=== PATIENT | female | born 1980 | race Caucasian/White ===

== ENCOUNTER 2016-04-29 08:46 | Inpatient (IN) | payer OTHER ==
[~2016-04-29 08:46] MED LIST: ATEN50TA PO; ETHI1TAB26 PO
[2016-04-29 09:22] LABS: Mean Corpuscular Hemoglobin 21.7 pg (27.0-35.0); Mean Corpuscular Volume 66.9 fL (81-100)
[2016-04-29] MEDS ORDERED: Magnesium Sulf 4 Gm/100 mL H2O 4 GM in IV Premix 1 EACH IV ONE (12:00)
[2016-04-29] MEDS ORDERED: Magnesium Sulf 20 Gm/500mL H2O 20 GM in IV Premix 1 EACH IV SCH (12:00)
--- NOTE | 2016-04-29 12:06 | PCM.HPOB ---
Subjective Date of Service: Apr 29, 2016 Referring Provider: Admitting Physician: Primary Care Physician: Korina Leach MD Attending Physician: Amisha Singleton MD Chief Complaint Preeclampsia with chronic Hypertension. History of Present History of Present Illness 35 yo with chronic hypertension at 33 weeks gestation presents to the [facility] from clinic where she was to do her twice weekly NST. Her blood pressure was measured in the office to be 180/110 and after 10 minutes 161 /99. She did not having some vision changes and left-sided headache this morning. She took her labetalol dose earlier than she normally does to help with these symptoms. Last night she took her blood pressure it was in the low 100s systolic and elected to not take her labetalol as when she does take it and her pressures are low she wakes up with palpitations in the morning. Her vision changes have resolved she has a mild headache. Blood pressures in triage are labile with consecutive readings of 157/100, 128/109, 133/82, 119/76 , 163/97, 154/92. 24-hour calculated urine protein on 03/05/2016 was found to be elevated at 350.9 mg per 24 hours normal range up to 150. On April 23 calculated 24-hour urine protein was measured at less than 119.6 OB History: (3), Para (2), Term (2), Pre-term (0), ( 0), Living (2) Obstetrical Complications: Pre-eclampsia Past Medical History Obstetrical History: in 2004 in 2009 No Hypertension or diabetes Gynecologic History: Abnormal Pap HPV negative, plan to repeat Pap Medical History: 1. Chronic Hypertension 2. Thalassemia 3. Pyelonephritis Hx Tobacco Use: No Hx Alcohol Use: No Hx Substance Use: No Past Family History Family History non-contributory Review of Systems Eyes: Resports: Vision Changes (vision changes) Cardiovascular: Denies: Chest Pain Respiratory: Denies: Cough Gastrointestinal: Denies: Abdominal Pain Genitourinary: Denies: Hematuria Neurological: Denies: Change in Speech Allergy Coded Allergies: No Known Allergies (Verified Allergy, Unknown, 07/31/14) Exam Vital Signs BP labile systolic range 163-119, diastolic range 71-109 Exam Category 1 tracing Constitutional: Well-developed, Well-nourished HEENT: Atraumatic Lungs: Clear to Auscultation, Normal Air Movement Heart: Regular Rate/Rhythm, No Murmurs/Rubs/Gallops Abdomen: Gravid Neuro: Grossly Neurologically Intact Labs/Diagnostics Labs WBCs 7.3 Hemoglobin 11.5 Hematocrit 85.4 Platelets 311 BUN 8 Creatinine 0.44 Uric acid 5.0 AST 15 ALT 13 Maternal Blood Type: A (positive) Hx Rho(D) Immune Globulin: No Antibody Screen: negative Group B Strep Results: Not done (less than 33 weeks) Rubella: Immune OB Intrapartum Assessment/Plan Assessment 35 yo with chronic hypertension (since 2011) is 32 weeks 6 days gestation. Presents from clinic with critically elevated blood pressures. She has had labile pressures with readings above 160 systolic after getting up to go to the bathroom. Dr. Leach spoke with Dr. Barrientos of [facility] at [place] who is accepting. She will be transferred to [facility] for and NICU services. She was started on Magnesium 4 gm loading with 2 gm/hr maintenance and given betamethasone. Problems: (1) Preeclampsia Qualifiers: Trimester: unspecified trimester Qualified Code: O14.90 - Unspecified pre- eclampsia, unspecified trimester Status: Acute ICD Code: O14.90 Pain Evaluation: Adequate Pain Control Intrapartum plan Transfer to [place] Attending Statement The patient was seen and examined together with Dr. Karis Carroll DO on 04/29/2016 and I agree with the history, exam and plan as outlined in the note above. KARIS CARROLL DO Apr 29, 2016 10:17 Korina Leach MD May 14, 2016 07:52
[2016-04-29] MEDS ORDERED: Lactated Ringer's 1,000 ML IV ONE (12:11)
--- NOTE | 2016-04-29 12:27 | PCM.DC.OB ---
Obstetrical Discharge Summary Date of Service Apr 29, 2016 Date of hospital admission Date of Discharge: Apr 29, 2016 Providers Admitting Physician: Primary Care Physician: Korina Leach MD Attending Physician: Amisha Singleton MD Diagnosis at Time of Discharge 1. Chronic hypertension 2. Preeclampsia Problems: (1) Preeclampsia Qualifiers: Trimester: unspecified trimester Qualified Code: O14.90 - Unspecified pre- eclampsia, unspecified trimester Status: Acute ICD Code: O14.90 Invasive procedures none Brief History and Physical: 35 yo with chronic hypertension at 33 weeks gestation presents to the [facility] from clinic where she was to do her twice weekly NST. Her blood pressure was measured in the office to be 180/110 and after 10 minutes 161 /99. She did not having some vision changes and left-sided headache this morning. She took her labetalol dose earlier than she normally does to help with these symptoms. Last night she took her blood pressure it was in the low 100s systolic and elected to not take her labetalol as when she does take it and her pressures are low she wakes up with palpitations in the morning. Her vision changes have resolved she has a mild headache. Blood pressures in triage are labile with consecutive readings of 157/100, 128/109, 133/82, 119/76 , 163/97, 154/92. 24-hour calculated urine protein on 03/05/2016 was found to be elevated at 350.9 mg per 24 hours normal range up to 150. On April 23 calculated 24-hour urine protein was measured at less than 119.6 Exam on day of discharge: vital signs stable and normal, well-nourished well- appearing, heart regular rate and rhythm no murmurs, lungs clear to auscultation bilaterally with good air movement. pulses symmetric and no edema in bilateral lower extremities. Appropriate mood and affect. Hospital Course: 35-year-old presents from clinic due to critically elevated blood pressures initial reading here was 157/100.She has had labile pressures with readings above 160 systolic after getting up to go to the bathroom. Lab values grossly normal with an indeterminate urine protein creatinine ratio. Dr. Leach spoke with Dr. Barrientos of [facility] at [place] who is accepting. She will be transferred to [facility] for and NICU services. She was started on Magnesium 4 gm loading with 2 gm/hr maintenance and given betamethasone. Transferred via ALS a regular and stable condition Atenolol (Atenolol) 50 Mg Tablet 50 MG PO DAILY (Reported) Ethinyl Estradiol/Drospirenone 0.02-3 mg (Beatrice 28) 1 Each Tablet 1 EACH PO DAILY (Reported) Discharge Medications: Betamethasone and magnesium infusion Disposition Transferred to [facility] maternal- medicine KRISTEL CARROLL DO Apr 29, 2016 12:27
[2016-04-30] MEDS ORDERED: Betameth Ace-Betam SodPhos 6 mg/mL 5 mL Inj IM SCH (08:30)
== END 2016-04-29 12:29 | disposition short-term general hospital (02) | DRG 781 ==
LOC: FBCO 08:46 → FBC 11:59
PROVIDERS: ADMIT Obstetrics & Gynecology; ATTEND Obstetrics & Gynecology
DX: O11.3 Pre-existing hypertension with pre-eclampsia, third trimester (principal); Z3A.33 33 weeks gestation of pregnancy; I10 Essential (primary) hypertension

== ENCOUNTER 2016-05-28 01:19 | Inpatient (IN) | payer OTHER ==
[~2016-05-28] VITALS: Ht 170.2 cm; Wt 73.5 kg
[2016-05-28] MEDS ORDERED: Methylergonovine 0.2 mg/mL Inj IM PRN ×2 (07:25→16:15)
[2016-05-28] MEDS ORDERED: Ondansetron 2 mg/mL 2 mL Inj IVPUSH PRN ×2 (07:25→10:25)
[2016-05-28] MEDS ORDERED: fentaNYL-PF 50 mCg/mL 2 mL Inj IVPUSH PRN (07:25)
[2016-05-28] MEDS ORDERED: Oxytocin 10 Unit/mL Inj IM PRN ×2 (07:25→16:15)
[2016-05-28] MEDS ORDERED: Carboprost 250 mCg/mL Inj IM PRN ×2 (07:25→16:15)
[2016-05-28] MEDS ORDERED: Hemorrhage Kit, Post Partum XX ONE ×2 (07:25→16:15)
[2016-05-28] MEDS ORDERED: Oxytocin 30 Units/500 mL LR 30 UNITS in IV Premix 1 EACH IV PRN ×3 (07:25→16:15)
[2016-05-28] MEDS ORDERED: Sodium Chloride LOK Flush 10 mL Syringe IVFLUSH PRN (07:25)
[2016-05-28] MEDS ORDERED: Lactated Ringer's 1,000 ML IV SCH ×2 (07:59→16:12)
[2016-05-28] MEDS ORDERED: hydrALAZINE 20 mg/mL Inj IVPUSH PRN (08:05)
[2016-05-28] MEDS ORDERED: Labetalol 5 mg/mL 4 mL Inj IV PRN (08:05)
[2016-05-28 08:42] LABS: Mean Corpuscular Hemoglobin 21.6 pg (27.0-35.0); Mean Corpuscular Volume 67.2 fL (81-100)
[2016-05-28] MEDS: Lactated Ringer's 1,000 ML IV PRN ×2 (09:01→13:48)
[2016-05-28] MEDS: Lactated Ringer's 1,000 ML IV SCH ×2 (10:22→18:22)
[2016-05-28] MEDS ORDERED: Lactated Ringer's 500 ML IV ONE (10:22)
--- NOTE | 2016-05-28 10:22 | PCM.HPANE ---
Patient Data Surgeon Admitting Provider:Mary Jo Bonds MD Attending Provider:Mary Jo Bonds MD Primary Care Physician:Cesar Canas MD Other Provider:Justin Gonzalez Anesthesia Reason for Visit Induction INDUCTION Ht/WT & BMI Body Mass Index Allergies Coded Allergies: No Known Allergies (Verified Allergy, Unknown, 07/31/14) Medications Reported Medications Ethinyl Estradiol/Drospirenone 0.02-3 mg (Beatrice 28)1 Each Tablet1 Each PO DAILY 07/31/14 Atenolol 50 Mg [id number] Mg PO DAILY #30 TABLET Ref 0 07/31/14 History Hx Alcohol Use: NoHx Substance Use: No Smoking Status: Never Smoker Stop/Bang Risk Assessment Category Category 1A: Patient has history of documented sleep apnea, and HAS NOT received any narcotic, sedative or anesthesia administration during this stay. Category 1B: Patient has history of documented sleep apnea, and HAS received any narcotic , sedative or anesthesia administration during this stay Category 2: Patient has SUSPECTED Obstructive Sleep Apnea, and HAS received any narcotic , sedative or anesthesia administration during this stay. Category 3: Patient has SUSPECTED Obstructive Sleep Apnea and HAS NOT received narcotic, sedative or anesthesia administration during this stay. Category 4: Outpatient in Procedural Areas with known sleep apnea or who screen positive for High Risk via the STOP/BANG questionnaire. Exam Exam General Appearance: Alert, Oriented X3, Cooperative, No Acute Distress HEENT/AIRWAY: MP 2 Lungs: Clear to Auscultation Heart: Exam Unremarkable Meds/Labs/Diagnostics Labs Test 05/28/16 07:00 05/28/16 08:30 Urine Random Creatinine 10mg/dL (16-392) Urine Random Total Protein 4mg/dL (0-15) Urine Protein/Creatinine Ratio 0.40 White Blood Count 7.7th/mm3 (3.8-10.1) Red Blood Count 5.27mil/mm3 (3.90-5.20) Hemoglobin 11.4g/dL (12.0-15.6) Hematocrit 35.4% (35.0-46.0) Mean Corpuscular Volume 67.2fL (81-100) Mean Corpuscular Hemoglobin 21.6pg (27.0-35.0) Mean Corpuscular Hemoglobin Concent 32.2% (32.0-37.0) Red Cell Distribution Width 15.2% (12.3-15.4) Platelet Count 292bil/L (150-400) Sodium Level 139mEq/L (134-144) Potassium Level 4.3mEq/L (3.5-5.2) Chloride Level 101mEq/L (97-108) Carbon Dioxide Level 23mmol/L (18-29) Blood Urea Nitrogen 9mg/dL (6-20) Creatinine 0.53mg/dL (0.57-1.00) Estimat Glomerular Filtration Rate 189mL/min (>59) Glucose Level 85mg/dL (60-99) Calcium Level 9.1mg/dL (8.5-10.1) Total Bilirubin 0.2mg/dL (0.0-1.2) Aspartate Amino Transf (AST/SGOT) 17U/L (0-50) Alanine Aminotransferase (ALT/SGPT) 15U/L (0-32) Alkaline Phosphatase 188U/L (25-150) Total Protein 6.9g/dL (6.4-8.4) Albumin 3.8g/dL (3.4-5.0) Plan Impression Patient chart reviewed, patient interviewed and anesthestic plan with risks, benefits, and alternatives discussed, and informed consent obtained. ASA Physical Status: ASA3 Severe Disease (severe preeclampsia) Anesthetic Plan: Epidural Bene/Risks/Altern/Consents: Yes HP Complete Prior to Induction: Yes Durga Louis MD May 28, 2016 10:22
[2016-05-28] MEDS ORDERED: fentaNYL 2 mCg/mL-Bupiv 0.125% 100 ML EPIDURAL SCH (10:25)
[2016-05-28] MEDS ORDERED: EPHEDrine Sulfate 50 mg/mL Inj IVPUSH PRN (10:25)
[2016-05-28] MEDS ORDERED: Atropine 1 mg/10 mL (Code) Syringe IVPUSH PRN (10:25)
[2016-05-28] MEDS ORDERED: LABE200T PO (13:39)
[2016-05-28] MEDS ORDERED: PREN1TAB25 PO (13:39)
[2016-05-28] MEDS ORDERED: Mineral Oil-Heavy 30 mL UDC ONE (15:38)
[2016-05-28] MEDS ORDERED: Witch Hazel-Glycerin Pads TOPICAL PRN (16:15)
[2016-05-28] MEDS ORDERED: LANOlin HPA 7 Gm Ointment TOPICAL PRN (16:15)
[2016-05-28] MEDS ORDERED: Benzocaine (Dermoplast) 20% 60 Gm Spray TOPICAL PRN (16:15)
[2016-05-28] MEDS ORDERED: Sodium Chloride LOK Flush 10 mL Syringe IVFLUSH SCH (16:30)
--- NOTE | 2016-05-28 16:41 | OP ---
[address] [address] OPERATIVE REPORT PATIENT: ADORE FULLER : 1980 MR#: [id number] ADMIT: 05/28/2016 JOB ID: [id number] DATE OF SURGERY: PREOPERATIVE DIAGNOSIS(ES): A 35-year-old, 3, para 2-0-0-2 at 37, weeks gestational age by last menstrual period, confirmed by first-trimester ultrasound. Had her complicated with chronic hypertension with superimposed preeclampsia. Admitted for induction of labor and progressed to fully dilated, +3 station. POSTOPERATIVE DIAGNOSIS(ES): A 35-year-old, 3, para 2-0-0-2 at 37, weeks gestational age by last menstrual period, confirmed by first-trimester ultrasound. Had her complicated with chronic hypertension with superimposed preeclampsia. Admitted for induction of labor and progressed to fully dilated, +3 station. PROCEDURE: Spontaneous vaginal delivery. SURGEON: Ilia Montoya MD. ANESTHESIA: Epidural. ESTIMATED BLOOD LOSS: 200 cc. COMPLICATIONS: None. FINDINGS: Single viable male with Apgars 9/9, weight is still pending. PROCEDURE: Patient started to push efficiently. Infant head delivered in left occiput anterior position. Nuchal cord x1 noted was reduced and then the anterior shoulder delivered followed by the posterior shoulder and rest of the body. Delayed cord clamping allowed for 60 seconds. The cord was clamped and cut. Infant placed over mom's chest. Placenta followed spontaneously. Upon inspection, it was noted to be intact with three-vessel cord centrally inserted. The placenta sent to Pathology for chronic hypertension with superimposed preeclampsia. Was noted to be small in size. Bimanual exam confirmed firm uterine fundus with no active bleeding going. Small blood clots retrieved. Included in the total estimated blood loss. Inspection of the perineum revealed no perineal lacerations. The patient tolerated the procedure well, mom and baby recovering in a stable condition in the labor and delivery room. There were no severe blood pressure ranges during the entire delivery and after the delivery. Sponge and instrument count correct x2. Dr. Montoya was present and scrubbed for the entire procedure. [facility]
[2016-05-28] MEDS: Ascorbic Acid 500 mg Tablet PO SCH (20:40)
[2016-05-29 07:22] LABS: Mean Corpuscular Hemoglobin 21.8 pg (27.0-35.0); Mean Corpuscular Volume 65.2 fL (81-100)
[2016-05-29] MEDS: Ascorbic Acid 500 mg Tablet PO SCH (07:59)
--- NOTE | 2016-05-29 14:50 | PCM.DIOB ---
Obstetrical Disch Instruction Date of Service: May 29, 2016 Dates of Hospitalization Date of Hospital Admission May 28, 2016 at 07:02 Providers Admitting Physician: Mary Jo Bonds MD Primary Care Physician: Cesar Canas MD Attending Physician: Mary Jo Bonds MD Discharge Diagnosis Discharge Diagnosis PPD#1 S/P . CHTN with superimposed PEC Problems: Diet Discharge Diet: No restrictions Activity Discharge Activity-General: Pelvic Rest for 6 weeks, No lifting >10 pounds for 4-6 weeks Dressing and Incisional Care Hygiene: May shower Additional Instructions Discharge Instructions Check your Blood pressure once daily at least. *Check your blood pressure if you have any PEC S/Os: headaches, visual S/Os, chest pain, shortness of breath, right upper quadrant pain. Follow Up Plan Follow-up Provider (F9): Korina Leach MD Follow-up appointment: Weeks (2) Call your provider for: Fever or Chills, Shortness of breath, Heavy vaginal bleeding, Other (excessive pain not controlled with pain medications. Severe headache, chest pain,visual symptoms) Ilia Montoya MD May 29, 2016 14:49
[2016-05-29] MEDS ORDERED: LABE200T PO (14:54)
[2016-05-29] MEDS ORDERED: OXYC1TAB24 PO (14:54)
[2016-05-29] MEDS ORDERED: IBUP-1827 PO (14:54)
[2016-05-29] MEDS ORDERED: DOCU-41 PO (14:54)
[2016-05-29 15:11] VITALS: BP 146/92; PULSE 84; RESP 17
--- NOTE | 2016-05-29 17:25 | DIS ---
[address] [address] DISCHARGE SUMMARY PATIENT: ADORE FULLER : 1980 MR#: [id number] ADMIT: 05/28/2016 JOB ID: [id number] DIS: 05/29/2016 REASON FOR ADMISSION: Admitted for induction of labor secondary to chronic hypertension with superimposed preeclampsia at 37 weeks. DISCHARGE DIAGNOSIS: 1. day number one status post spontaneous vaginal delivery. 2. History of hypertension with superimposed preeclampsia. Blood pressure controlled with labetalol p.o. HOSPITAL COURSE: On day of discharge, the patient had no complaints. Voiding, ambulating. Tolerating p.o. intake. with no difficulties. Denied any headache, visual symptoms, right upper quadrant pain, chest pain, shortness of breath, leg pain. Vital signs are 117/69 for blood pressure, respirations are 17, pulse is 87, temperature 36.5 degrees centigrade. Blood pressure ranges for the last 24 hour shift are 160-131 systolics over 103-63 diastolics. Majority of BP values were within normal limits for the last 24 hour period. Blood pressure controlled with labetalol 200 mg t.i.d. Heart is regular rate and rhythm. Positive S1, S2. Lungs clear to auscultation bilaterally. Abdomen is firm. Uterine fundus palpated at 1 cm below the umbilicus. Nontender. Positive bowel sounds. Nondistended abdomen. Perineum: No active bleeding. Lower extremities: No calf tenderness appreciated bilaterally. Deep tendon reflexes are 2+ upper, 2+ lower. No right upper quadrant tenderness observed on the abdominal exam. H and H this morning is 11.5 and 34.4, platelets are 300, white blood count 10.1. AST 39, ALT 20. Creatinine is 0.53. Stable labs. DISCHARGE PLAN: The patient is being discharged home in a stable condition. Follow up with Dr. Leach in the office in two weeks. Instructed to have nothing in the vagina for six weeks. No heavy lifting more than baby's weight. Instructed to call for fever, chills, severe abdominal pain uncontrolled with medication, heavy vaginal bleeding, or any other preeclampsia signs or symptoms. The patient was instructed to check her blood pressure daily and also to check her blood pressure with any severe headaches, visual symptoms, right upper quadrant pain, chest pain, or shortness of breath, and to bring the blood pressure log with her to her followup appoint with Dr. Leach for his review. DISCHARGE MEDICATIONS: 1. Ibuprofen 600 every 6 hours as needed for moderate pain, 2. Percocet 5/325 one tablet every 4 hours as needed for severe pain, 3. Colace 100 mg twice daily, 4. vitamin once daily, 5. labetalol 200 mg q. 8 hours. The patient understood the discharge instructions. She will comply with her discharge plan. [facility]
--- NOTE | 2016-05-31 15:33 | PATH ---
SURGICAL PATHOLOGY Attending Physician:Ilia Montoya MD CASE STATUS: Signed Out PATIENT NAME: ADORE FULLER PID: [id number] : 1980 DATE COLLECTED:05/28/2016 00:00 SPECIMEN: Placenta CLINICAL HISTORY: Chronic Hypertension with superimposed Preeclampsia 37 WEEKS GESTATION 1). PLACENTA FINAL DIAGNOSIS: 1.PLACENTA: VILLAR PLACENTA WITH LOW PLACENTAL WEIGHT (LESS THAN 10TH PERCENTILE FOR 37 WEEKS GESTATION): NEGATIVE FOR CHORIOAMNIONITIS OR INFARCTS. ICD10 CODE O43.8 GROSS DESCRIPTION: The specimen is received in formalin, labeled with the patient's name and consists of an intact placenta and includes placental disc (231 g, 12.2 x 11.8 x 2.5 cm), umbilical cord (length-17.7 cm, diameter-1.1 and x 0.8 cm) and membranes. The membranes are ruptured 0.5 cm from the free edge of the placenta and are semi-translucent. The umbilical cord is attached 3.8 cm from the edge of the placenta and contains 3 vessels. The surface is smooth and shiny with no evidence of meconium. The maternal surface is dark maroon with normal cotyledon formation. The placental disc is spongy with no infarcts, nodules, masses, or lesions. Section code: (A) edge of placenta with membranes, umbilical cord; (B-D) placenta, 3 full thickness sections. 05/30/16 MICRO DESCRIPTION: See diagnosis. ICD-9 CODES: CPT CODES: 1: 98707 Electronically Signed Out Aylin Kolb MD Merged With [facility] Pathology [facility] [address], [place] [address] Technical component performed at [facility], [facility] [address], [place], [address]
--- NOTE | 2016-07-05 13:20 | HP ---
[address] [address] HISTORY AND PHYSICAL PATIENT: ADORE FULLER : 1980 MR#: [id number] ADMIT: 05/28/2016 JOB ID: [id number] DATE: 05/28/2016 INTERVAL NOTE: The patient was sent over from clinic on the for elevated blood pressures shortly after discharge from the hospital following her delivery. Please see the clinic note from the for details regarding this. No changes occurred from the clinic documentation that day.
== END 2016-05-29 15:30 | disposition home or self-care (01) | DRG 775 ==
LOC: FBC 07:02
PROVIDERS: ADMIT Obstetrics & Gynecology; ATTEND Obstetrics & Gynecology
PROC: 10E0XZZ Delivery of Products of Conception, External Approach (ICD-10-PCS; principal; 2016-05-28)
PROC: 10907ZC Drainage of Amniotic Fluid, Therapeutic from Products of Conception, Via Natural or Artificial Opening (ICD-10-PCS; 2016-05-28)
PROC: 3E033VJ Introduction of Other Hormone into Peripheral Vein, Percutaneous Approach (ICD-10-PCS; 2016-05-28)
DX: O11.4 Pre-existing hypertension with pre-eclampsia, complicating childbirth (principal); O69.81X0 Labor and delivery complicated by cord around neck, without compression, not applicable or unspecified; I10 Essential (primary) hypertension; Z3A.37 37 weeks gestation of pregnancy; Z37.0 Single live birth

== ENCOUNTER 2016-06-02 10:19 | Inpatient (IN) | payer OTHER ==
[~2016-06-02] VITALS: Ht 170.2 cm; Wt 68.2 kg
[2016-06-02] VITALS (23 sets, daily range): BP systolic 126–173; BP diastolic 66–98; PULSE 70–100; RESP 15–18
[~2016-06-02 10:19] MED LIST changes: -ATEN50TA PO; +DOCU-41 PO; -ETHI1TAB26 PO; +IBUP-1827 PO; +LABE200T PO; +OXYC1TAB24 PO; +PREN1TAB25 PO
[2016-06-02] MEDS ORDERED: hydrALAZINE 20 mg/mL Inj ONE (12:02)
--- NOTE | 2016-06-02 12:22 | NUR ---
Admit note pt denies headache, dizziness, seeing spots at this time. DTR's 2-3+, no clonus noted on assessment. IV started, labs collected and sent. B/P monitored q 15 min. Initial B/P elevated on arrival, then decreased, blood pressure noted to meet criteria for MD call. Dr Bonds notified of pt status, ordered to start emergent hypertension protocol with hydralazine. Pt given 10mg IV hydralazine IV slowly over two min. tolerated well.
[2016-06-02] MEDS ORDERED: hydrALAZINE 20 mg/mL Inj IVPUSH PRN (12:30)
[2016-06-02] MEDS ORDERED: Labetalol 5 mg/mL 4 mL Inj IV PRN (12:30)
--- NOTE | 2016-06-02 15:26 | NUR ---
Dr Canas notified of pt status, ordered to decrease labetalol to 200mg for her midday dose. Plan is for provider to come in to reassess medication dosing for pm dose.
--- NOTE | 2016-06-02 19:22 | NUR ---
Dr Canas in to assess pt. Changed pt to Atenolol 25mg po BID to start at 2100 06/02/16, DC'd labatelol po, changed B/P checks to Q2 hours. Pt up ambulating to bathroom, tolerated well, no increase noted in B/P while getting up to the bathroom after IV dose of hydralazine. Pt denies pain on shift. Voiding large amounts, no fluid restrictions ordered. Shift report given to MR RN to cont with POC.
--- NOTE | 2016-06-02 20:37 | NUR ---
192 Assessment Pt independent. Denies pain. Clonus is negative. DTR's 1+. Denies headache, dizziness, blurred vision, or light headedness. BP 146/82. No complaints at this time.
[2016-06-03] VITALS (12 sets, daily range): BP systolic 117–186; BP diastolic 64–103; PULSE 75–87; RESP 18
--- NOTE | 2016-06-03 08:01 | PCM.PNMED ---
Subjective Date of Service Jun 03, 2016 Subjective Patient is resting comfortably this morning. She states that she is feeling much better. She is anxious to get home to her baby and expresses concern about her blood pressures (130s-140s SBP), which are still above her baseline. She denies headaches, vision changes, chest pain, dizziness, abdominal pain, nausea or vomiting. Exam Vital Signs Vital Sign - Last Date Time Temp Pulse Resp B/P Pulse Ox O2 Delivery O2 Flow Rate FiO2 06/03/16 04:00 77 18 142/84 Room Air 06/02/16 23:27 36.8 Intake and Output 06/02/16 06/02/16 06/03/16 Cumulative From/Thru 15:00 23:00 07:00 06/02/16 11:21 - 06/02/16 19:19 Intake Total 1000 ml 850 ml 1850 ml Output Total 1025 ml 1150 ml 2175 ml Balance -25 ml -300 ml -325 ml Intake Oral 500 ml 850 ml 1350 ml IV Total 500 ml 500 ml Output Urine Total 1025 ml 1150 ml 2175 ml Exam General: Well-developed, well-nourished, in no acute distress HEENT: NCAT, PERRLA, moist mucosa. Cardiovascular: RRR, no murmurs, rubs, or gallops Pulmonary: Clear to auscultation b/l. Normal respiratory effort Abdomen: Soft, nontender, bowel tones present. Extremities: No edema IVs and Medications Medications Reviewed: Medications were reviewed in detail Lab and Diagnostics 06/02/16 11:09: White Blood Count 7.2, Red Blood Count 5.45, Hemoglobin 12.0, Hematocrit 36.5, Mean Corpuscular Volume 67.0, Mean Corpuscular Hemoglobin 22.0, Mean Corpuscular Hemoglobin Concent 32.9, Red Cell Distribution Width 15.3, Platelet Count 380, Sodium Level 140, Potassium Level 4.3, Chloride Level 101, Carbon Dioxide Level 26, Blood Urea Nitrogen 8, Creatinine 0.51, Estimat Glomerular Filtration Rate 198, Glucose Level 81, Calcium Level 9.3, Total Bilirubin 0.2, Aspartate Amino Transf (AST/SGOT) 38, Alanine Aminotransferase (ALT/SGPT) 44, Alkaline Phosphatase 128, Total Protein 7.3, Albumin 3.6 Result Diagram: 06/02/16 1109 06/02/16 1109 Assessment & Plan 35 y/o female on post- day #6 after at 37wks following IOL for chronic hypertension with superimposed preeclampsia sent to the [facility] from clinic for persistently elevated BP of 170/100 despite her home dosing of Labetalol (200mg TID). Admitted for serial blood pressure monitoring and IV anti -hypertensives. 1. Chronic hypertension w/superimposed pre-eclampsia, post-. -HTN well controlled w/Atenolol 50mg daily pre- & Labetalol during . -On admission [id number], rec'd IV hydralazine & IV labetalol w/ BP now 130s- 140s/70s-80s. -Labetalol discontinued. -Resumed Atenolol at 25mg BID; SBP 130s-140s this morning. -Continue current Atenolol dosing, re-evaluate dosing after second dose and increased activity. Pain Evaluation: Adequate Pain Control GI Prophylaxis: Not indicated VTE Prophylaxis: Other (ambulation) Resuscitation Status: CPR: Attempt Resuscitation Attending Statement The patient was seen and examined together with Hayley Morales DO on 2016 and I agree with the history, exam and plan as outlined in the note above Hayley Morales DO Jun 03, 2016 07:22 Korina Leach MD Jun 11, 2016 13:33
--- NOTE | 2016-06-03 09:50 | NUR ---
Shift note: Patient resting comfortably over night with her BPs staying in the 130s/140s systolic. Pt with no heart palpitations, no dizziness. This morning pt was concerned that her BP would continue to rise and asked for 50mg Atenolol for her morning dose. She was given 25mg per MD order with the idea that we would recheck and reevaluate in an hour. The following BPs had increased to 159/82, 156/94. MD Hardy phoned and said she would run it by MD Cardenas for follow up orders. Addendum: 06/03/16 at 1122 by JULY RHODES RN blood pressure: Pt received 2nd dose of Atenolol 25mg at 1010. Passed off to Melissa Calvo RN for follow up.
--- NOTE | 2016-06-03 12:00 | NUR ---
BP's 186/100 and 174/100. Denies CORREA or vision disturbances. Call to Resident Hardy with above BP's. Awaiting orders from Dr Leach.
--- NOTE | 2016-06-03 12:15 | NUR ---
Return call from Resident Hayley, follow Emergent Hypertensive Protocol using Hydralazine. Dr Leach will be in soon to see pt. 5mg Hydralazine given at 1205 IVP.
--- NOTE | 2016-06-03 12:43 | NUR ---
Dr Leach at bedside talking with pt and family about POC. Will start Procardia XR 30mg QD in addition to Atenolol 50mg BID. BP 139/78 20 minutes after Hydralazine 5mg IVP.
[2016-06-03] MEDS: NIFEdipine 30 mg ER24 Tablet PO SCH (13:19)
--- NOTE | 2016-06-03 19:54 | NUR ---
I&O Noticed mid shift that no I&O data had been documented since 06/02. MD notified and orders confirmed, I&O must be documented due to patient's increased BP.
[2016-06-04 07:00] VITALS: BP 123/70; PULSE 75
--- NOTE | 2016-06-04 08:17 | PCM.PNMED ---
Subjective Date of Service Jun 04, 2016 Subjective Patient found sitting up in bed, appears comfortable and reports a mild headache but otherwise states that she is doing much better. She is anxious to get home and relieved her blood pressure is improving. She attributes her headache to lack of sleep, blood pressure 117-130s/60s-70s. She denies vision changes, abdominal pain, chest pain or palpitations. Exam Vital Signs Vital Sign - Last Date Time Temp Pulse Resp B/P Pulse Ox O2 Delivery O2 Flow Rate FiO2 06/03/16 22:48 117/64 06/03/16 19:29 87 06/03/16 15:25 36.6 06/03/16 04:00 18 Room Air Intake and Output 06/03/16 06/03/16 06/04/16 Cumulative From/Thru 15:00 23:00 07:00 06/02/16 11:21 - 06/02/16 19:19 Intake Total 1850 ml Output Total 2175 ml Balance -325 ml Intake Oral 1350 ml IV Total 500 ml Output Urine Total 2175 ml Exam General: Well-developed, well-nourished, in no acute distress HEENT: NCAT, PERRLA, moist mucosa. Cardiovascular: RRR, no murmurs, rubs, or gallops Pulmonary: Clear to auscultation b/l. Normal respiratory effort Abdomen: Soft, nontender, bowel tones present. Extremities: No edema IVs and Medications Medications Reviewed: Medications were reviewed in detail Medications Atenolol 50 mg BID PO Nifedipine 30 mg DAILY PO Ibuprofen 600 mg Q6H PRN PO Lab and Diagnostics White Blood Count 7.2, Red Blood Count 5.45, Hemoglobin 12.0, Hematocrit 36.5, Mean Corpuscular Volume 67.0, Mean Corpuscular Hemoglobin 22.0, Mean Corpuscular Hemoglobin Concent 32.9, Red Cell Distribution Width 15.3, Platelet Count 380, Sodium Level 140, Potassium Level 4.3, Chloride Level 101, Carbon Dioxide Level 26, Blood Urea Nitrogen 8, Creatinine 0.51, Estimat Glomerular Filtration Rate 198, Glucose Level 81, Calcium Level 9.3, Total Bilirubin 0.2, Aspartate Amino Transf (AST/SGOT) 38, Alanine Aminotransferase (ALT/SGPT) 44, Alkaline Phosphatase 128, Total Protein 7.3, Albumin 3.6 Result Diagram: 06/02/16 1109 06/02/16 1109 Assessment & Plan 35 y/o female on post- day #7 after at 37wks following IOL for chronic hypertension with superimposed preeclampsia sent to the [facility] from clinic for persistently elevated BP of 170/100 despite her home dosing of Labetalol (200mg TID). Admitted for serial blood pressure monitoring and IV anti -hypertensives. Hospital day #3. 1. Chronic hypertension w/superimposed pre-eclampsia, post-. -HTN well controlled w/Atenolol 50mg daily pre- & Labetalol during . -On admission [id number], rec'd IV hydralazine & IV labetalol w/ BP now 130s- 140s/70s-80s. -Labetalol discontinued & Atenolol resumed on hospital day #2 but patient continued to have labile blood pressures with SBP 150s-170s and Procardia 30mg daily was added with good control. -Continue Atenolol at 50mg BID and Procardia 30mg daily. -Monitor patient this morning, serial BPs with activity/ambulation. Possible discharge home later today. GI Prophylaxis: Not indicated VTE Prophylaxis: Other (ambulation) Resuscitation Status: CPR: Attempt Resuscitation Attending Statement Patient seen and examined. This morning her blood pressures are better on atenolol 50 BID and procardia 30 XL- now ranging mostly 110-140's/70-80's, with elevations to 150's/90's when she is due for her next dose of medication. No s/ s of pre-eclampsia- DTR are 2+, no clonus is present. She is otherwise doing well and strongly desires discharge home today. Will discharge this afternoon if BP remain stable throughout today. Hayley Morales DO Jun 04, 2016 07:04 Mary Jo Bonds MD Jun 05, 2016 05:50
[2016-06-04 08:30] VITALS: BP 158/97; PULSE 76
[2016-06-04] MEDS: NIFEdipine 30 mg ER24 Tablet PO SCH (08:39)
--- NOTE | 2016-06-04 08:59 | NUR ---
BP @ 0700, 123/70, pt denies pain or H/A. Was able to sleep last night and feeling better. Anxious to go home. Dr Bonds at bedside talking with pt about POC, with possible discharge later this afternoon. BP at 08:30, 158/97, Atenolol 50mg PO and Procardia XL 30mg PO given.
[2016-06-04 10:30] VITALS: BP 137/84
[2016-06-04 12:30] VITALS: BP 152/84
[2016-06-04 13:32] VITALS: BP 158/84; PULSE 77; RESP 16
--- NOTE | 2016-06-04 13:45 | PCM.DIMED ---
[place] North ShoreRoyal Louise DO 06/04/16 1345: Discharge Instructions Date of Service Jun 04, 2016 Dates of Hospitalization Jun 02, 2016 at 10:19 am Discharge Diagnosis Discharge Diagnosis Chronic hypertension w/superimposed pre-eclampsia, post- Medication Instructions Atenolol 50 mg twice a day by mouth Nifedipine 30 mg daily by mouth Test Results Laboratory Tests 72 Hours Test 06/02/16 11:09 White Blood Count 7.2th/mm3 (3.8-10.1) Red Blood Count 5.45mil/mm3 (3.90-5.20) Hemoglobin 12.0g/dL (12.0-15.6) Hematocrit 36.5% (35.0-46.0) Mean Corpuscular Volume 67.0fL (81-100) Mean Corpuscular Hemoglobin 22.0pg (27.0-35.0) Mean Corpuscular Hemoglobin Concent 32.9% (32.0-37.0) Red Cell Distribution Width 15.3% (12.3-15.4) Platelet Count 380bil/L (150-400) Sodium Level 140mEq/L (134-144) Potassium Level 4.3mEq/L (3.5-5.2) Chloride Level 101mEq/L (97-108) Carbon Dioxide Level 26mmol/L (18-29) Blood Urea Nitrogen 8mg/dL (6-20) Creatinine 0.51mg/dL (0.57-1.00) Estimat Glomerular Filtration Rate 198mL/min (>59) Glucose Level 81mg/dL (60-99) Calcium Level 9.3mg/dL (8.5-10.1) Total Bilirubin 0.2mg/dL (0.0-1.2) Aspartate Amino Transf (AST/SGOT) 38U/L (0-50) Alanine Aminotransferase (ALT/SGPT) 44U/L (0-32) Alkaline Phosphatase 128U/L (25-150) Total Protein 7.3g/dL (6.4-8.4) Albumin 3.6g/dL (3.4-5.0) Diet Low fat, Low Sodium, Heart Healthy Activity Other (Continue with pelvic rest until 6wk post . Limit activity as pain allows. Balance activity and rest. ) Call your provider Fever or Chills, Shortness of breath, Bleeding, Chest pain, Vomitting, Excessive diarrhea, Weakness (unilateral) Patient Instructions Please take medications at current doses and regimen. Follow up with [facility] on Tuesday06/07/16 Please refer to you previous discharge instruction regarding your post care. Please continue to check her blood pressure daily, recommend you do it at least once a day. Preferably after breakfast and before lunch, and then in the evening before dinner. Keep a record of all your blood pressure readings and bring them in to their follow-up doctors appointments. If you have pressures over 140/90 CONSISTENTLY, meaning more than four readings 3 hours apart, please contact Women's Health office, or report to urgent care. If you experience any lightheadedness, dizziness, chest pain, shortness of breath, unrelenting panic attack, heartburn that is not relieved with Tums, or the sensation that your heart is beating hard, fast, or irregularly, please not hesitate to go to the ER or call 911 if necessary. Follow-up plan [facility] on Tuesday06/07/16 Provider: Mary Jo Bonds MD Follow-up in: Other (Tuesday06/07/16) Mary Jo Bonds MD 06/05/16 0605: Discharge Instructions Attending's Statement The patient was seen and examined 06/04/16 and I agree with the history, exam and plan as outlined in the note above. Blood pressures have remained stable throughout the day and she would like discharge home. Plan to have her return to clinic early next week for follow up blood pressure check. Royal Charles DO Jun 04, 2016 13:45 Mary Jo Bonds MD Jun 05, 2016 06:05
[2016-06-04] MEDS ORDERED: NIFE30TA92 PO (13:47)
[2016-06-04] MEDS ORDERED: ATEN25TA PO (13:47)
--- NOTE | 2016-06-04 14:40 | PCM.DC.OB ---
Obstetrical Discharge Summary Date of Service Jun 04, 2016 Date of hospital admission Jun 02, 2016 at 10:19 am Date of Discharge: Jun 04, 2016 Providers Admitting Physician: Cesar Canas MD Primary Care Physician: Cesar Canas MD Attending Physician: Cesar Canas MD Diagnosis at Time of Discharge Chronic hypertension w/superimposed pre-eclampsia, post-. Problems: Brief History and Physical: Patient returned to the [facility] on day 6 after being found to have persistently elevated blood pressure of 170/70 despite home dosing of labetalol 200 mg 3 times a day. She denies any chest pain, has had headaches which she contributes to lack of sleep and her blood pressures. Denies any vision changes, abdominal pain, or heart palpitations. She was induced 5 days prior to being term gestation with preeclampsia. Physical exam on day of discharge: General: Well-developed, well-nourished, in no acute distress HEENT: NCAT, PERRLA, moist mucosa. Cardiovascular: RRR, no murmurs, rubs, or gallops Pulmonary: Clear to auscultation b/l. Normal respiratory effort Abdomen: Soft, nontender, bowel tones present. Extremities: No edema Hospital Course: Patient was treated with oral and IV antihypertensives including labetalol, hydralazine, nifedipine, and atenolol. Prior to patient was on atenolol which she said worked well for her, she was switched from labetalol to atenolol on hospital day 2, at which point she began to have noticeable decrease in her blood pressures to normotensive range. Atenolol and nifedipine were used on day of discharge, she maintained having blood pressures in the normotensive range however there were a few outliers at times of stress, none in the malignant hypertension range in which she presented. She stated she was ready to go home, was comfortable, she continued to have headaches but attributed that to lack of sleep. Denies any changes in vision, chest pain, or palpitations on day of discharge. Atenolol (Atenolol) 25 Mg Tablet 50 MG PO BID Prescribed by: ROYAL PIERCE DO Docusate Sodium (Colace) 100 Mg Capsule 100 MG PO BID Prescribed by: SOLITARIO GILES MD Ibuprofen (Ibuprofen) 600 Mg Tablet 600 MG PO Q6H PRN PRN For Pain Prescribed by: SOLITARIO GILES MD Nifedipine ER (Adalat CC) 30 Mg Tablet 30 MG PO DAILY Prescribed by: ROYAL PIERCE DO Vit#96/Ferrous Fum/FA ( Tablet) 1 Each Tablet 1 EACH PO DAILY ( Reported) oxyCODONE-Acetaminophen 5-325 mg (oxyCODONE-Acetaminophen 5-325 mg) 1 Each Tablet 1 TAB PO Q4H PRN PRN For Pain Prescribed by: SOLITARIO GILES MD Discontinued Medications Labetalol (Labetalol) 200 Mg Tablet 200 MG PO Q8H Prescribed by: SOLITARIO GILES MD Discharge Medications: Atenolol 50 mg twice a day by mouth Nifedipine ER 30 mg daily by mouth All other continue medication as above. Disposition Home with family Follow-up plan Follow-up women's health with Dr. Ochoa on 06/07/2016 Discharge Diet: Low fat, Low Sodium, Heart Healthy Discharge Activity-General: Pelvic Rest for 6 weeks, Try not to overdue, Be up and about, Balance rest and activity, Activity as pain allows, Activity as energy allows, No lifting >15 pounds for 2 weeks Patient instructions Please take medications at current doses and regimen. Follow up with [facility] Women's Health on Tuesday06/07/16 Please refer to you previous discharge instruction regarding your post care. Please continue to check her blood pressure daily, recommend you do it at least once a day. Preferably after breakfast and before lunch, and then in the evening before dinner. Keep a record of all your blood pressure readings and bring them in to their follow-up doctors appointments. If you have pressures over 140/90 CONSISTENTLY, meaning more than four readings 3 hours apart, please contact Women's Health office, or report to urgent care. If you experience any lightheadedness, dizziness, chest pain, shortness of breath, unrelenting panic attack, heartburn that is not relieved with Tums, or the sensation that your heart is beating hard, fast, or irregularly, please not hesitate to go to the ER or call 911 if necessary. Attending Statement: The patient was seen and examined and I agree with the history, exam and plan as outlined in the note above. Return early next week for blood pressure check. Royal Charles DO Jun 04, 2016 14:40 Mary Jo Bonds MD Jun 05, 2016 06:06
--- NOTE | 2016-07-27 14:54 | HP ---
[address] [address] HISTORY AND PHYSICAL PATIENT: ADORE FULLER : 1980 MR#: [id number] ADMIT: 06/02/2016 JOB ID: [id number] The patient is a 35-year-old 3, para 2-0-0-3 that comes to Labor and Delivery on day five of the spontaneous vaginal delivery at 37 weeks that followed induction of labor for chronic hypertension with superimposed preeclampsia. The patient was discharged from the [facility] on day three with all discharge criteria met, presented to [facility] today, June 02, 2016, with elevated blood pressure 170/100. The patient has been taking labetalol 200 mg p.o. t.i.d. at home, despite of that the blood pressure is still high. PHYSICAL EXAMINATION: Vital signs: Blood pressure 170/100, respiratory rate 18, pulse 92, temperature 36.7. General examination: Well-developed, well-nourished, in no acute distress. HEENT: PERRLA. Moist mucosa. Cardiovascular system: Regular rate and rhythm. No murmurs, no rubs or gallops. Lungs: Clear bilaterally to auscultation. Normal respiratory effort. No adventitious sounds. Abdomen is soft, nontender, nondistended. The uterus is palpable at the level of the umbilicus. Nontender. Extremities: No pitting edema. Pelvic examination: No bleeding. No abnormal discharge. LABORATORIES: WBC count 7.2, platelets 380, hemoglobin 12.0, hematocrit 36.5. AST 38, ALT 44, ALT 128. Potassium 4.3, sodium 140, BUN 0.5, creatinine 8. ASSESSMENT AND PLAN: A 35-year-old 3, para 3, status post spontaneous vaginal delivery day five presents with elevated blood pressure. She is being admitted for serial blood pressure monitoring and IV antihypertensives. The patient is getting IV labetalol as per protocol. P.o. labetalol will be discontinued. We will resume atenolol at 25 mg p.o. b.i.d. as the patient has been taking it before. Preeclampsia panel labs will be repeated on hospital day two. Discharge is to be planned as soon as the patient is stable.
== END 2016-06-04 13:30 | disposition home or self-care (01) | DRG 776 ==
LOC: FBC 10:19
PROVIDERS: ADMIT Legal Medicine; ATTEND Legal Medicine
DX: O11.5 Pre-existing hypertension with pre-eclampsia, complicating the puerperium (principal)